=== PATIENT | female | born 1960 | race Caucasian/White ===

== ENCOUNTER 2016-08-14 12:21 | Emergency (ER) | payer BC ==
[2016-08-14] MEDS ORDERED: IBUPROFEN 800 MG TABLET ONE (14:30)
[2016-08-14] MEDS ORDERED: LACTATED RINGERS 1,000 ML ONE ×2 (14:30→15:29)
[2016-08-14 14:38] LABS: ABSOLUTE NEUTROPHIL COUNT 12.1 K/mm3 (1.8-7.7); BASO # 0.1 K/mm3 (0.0-0.2); BASO % 0.4 % (0.2-1.0); EOS % 0.1 % (0.9-2.9); HEMATOCRIT 36.6 % (37.0-47.0); HEMOGLOBIN 11.7 gm/l (12.0-16.0); IMM NEUT # 0.1 K/mm3 (0-0.2); IMM NEUT% 0.4 % (0-1); LYMPH # 0.9 (1.0-4.8); LYMPH % 6.7 % (15-45); MEAN CELL VOLUME 86.1 fl (81.0-99.0); MEAN CORPUSCULAR HEMOGLOBIN 27.5 pg (27.0-31.0); MEAN PLATELET VOLUME 11.2 fl (7.4-10.4); MONO # 0.9 (0.0-0.8); MONO % 6.3 % (4-12); NEUT % 86.1 % (43-75); PLATELET COUNT 222 K/mm3 (130-400); RED CELL DISTRIBUTION WIDTH 14.5 % (11.5-14.5)
[2016-08-14 14:55] LABS: ALB/GLOB RATIO 1.1 (>1.0); ALBUMIN 3.4 gm/dL (3.5-5.7); CALCIUM 8.9 mg/dL (8.6-10.3); MAGNESIUM 1.3 mg/dL (1.9-2.7)
[2016-08-14 14:57] LABS: TROPONIN I < 0.01 ng/ml (0.0-0.06)
[2016-08-14 15:07] LABS: THYROID STIMULATING HORMONE 1.51 uIU/ml (0.34-5.60)
[2016-08-14] MEDS ORDERED: MAGNESIUM SULFATE 1 GM/2 ML ONE (15:29)
[2016-08-14] MEDS ORDERED: MAGNESIUM SULFATE 1 G/100 ML 100 ML IV ONE ×2 (15:29→15:31)
[2016-08-14 15:58] LABS: SPECIFIC GRAVITY 1.015 (1.001-1.030); URINE APPEARANCE CLEAR; URINE BILIRUBIN NEGATIVE (NEGATIVE); URINE BLOOD NEGATIVE (NEGATIVE); URINE COLOR YELLOW; URINE GLUCOSE (UA) NEGATIVE (NEGATIVE); URINE LEUKOCYTE ESTERASE NEGATIVE (NEGATIVE); URINE NITRITE NEGATIVE (NEGATIVE); URINE PROTEIN NEGATIVE (NEGATIVE); URINE UROBILINOGEN NORMAL (0-1 mg/dl)
== END 2016-08-14 17:19 | disposition home or self-care (01) ==
LOC: ED 12:21
DX: R50.9 Fever, unspecified (principal); E86.0 Dehydration; E83.42 Hypomagnesemia; I10 Essential (primary) hypertension; E11.9 Type 2 diabetes mellitus without complications; Z79.84 Long term (current) use of oral hypoglycemic drugs
CPT/HCPCS: 83605; 85025; 87040 ×2; 80053; 83735; 81003; 84443; 84484; 99284 ×2; 96361; 96365; 82962; 36415; J3475 ×2; A9270; J7120 ×2